=== PATIENT | male | born 1970 | race Caucasian/White ===

== ENCOUNTER 2018-10-19 21:51 | Emergency (ER) | payer SELFPAY ==
[~2018-10-19] VITALS: Ht 180.3 cm; Wt 71.0 kg
[2018-10-19 21:53] VITALS: BP 160/97
[2018-10-19] MEDS ORDERED: IBUPROFEN 200 MG TABLET ONE (22:46)
[2018-10-19] MEDS ORDERED: OXYcodone/APAP 5/325MG TABLET ONE (22:46)
[2018-10-19] MEDS ORDERED: OXYcodone/APAP 5/325MG TABLET PO ONE (23:00)
[2018-10-19] MEDS ORDERED: CEFAZOLIN 1,000 MG IM ONE (23:00)
[2018-10-19] MEDS ORDERED: SULFAMETH./TRIMETHOPRIM DS 800MG/160MG TABLET PO ONE (23:00)
[2018-10-19] MEDS ORDERED: IBUPROFEN 200 MG TABLET PO ONE (23:00)
[2018-10-19] MEDS ORDERED: CEFAZOLIN 1,000 MG ONE (23:01)
[2018-10-19] MEDS ORDERED: SULFAMETH./TRIMETHOPRIM DS 800MG/160MG TABLET ONE (23:02)
== END 2018-10-19 23:42 | disposition home or self-care (01) ==
LOC: ED 23:36
DX: L03.012 Cellulitis of left finger (principal); R23.4 Changes in skin texture; M79.641 Pain in right hand
CPT/HCPCS: 73140; 96372; 99284; J0690